=== PATIENT | female | born 1945 | race African-American/Black ===

== ENCOUNTER 2021-07-18 14:31 | Emergency (ER) | payer MEDICARE, OTHER ==
[2021-07-18 15:00] LABS: #Eosinphils 0.1 thou/uL (0.0-0.7); #Lymphocytes 1.8 thou/uL (1.20-3.40); #Monocytes 0.7 thou/uL (0.11-0.59); #Neutrophils 5.9 thou/uL (1.40-6.50); %Basophils 0.3 % (0.0-1.0); %Eosinophils 0.6 % (0.0-10.0); %Lymphocytes 21.6 % (21.0-51.0); %Monocytes 7.9 % (0.0-10.0); %Neutrophils 69.7 % (42.0-75.0); Hemoglobin 12.9 g/dL (12.0-16.0); Mean Corpuscular HGB CONC 33.4 g/dL (32.0-36.0); Mean Corpuscular Hemoglobin 30.4 pg (27.0-31.0); Mean Platelet Volume 7.4 fL (7.4-10.4); Platelet Count 159 thou/uL (130-400); RBC Distribution Width 14.2 % (11.5-14.5); Red Blood Cell (RBC) Count 4.26 mill/uL (4.20-5.40); White Blood Cell (WBC) Count 8.5 thou/uL (4.8-10.8)
[2021-07-18 15:21] LABS: ALT (SGPT) 9 U/L (8-55); AST (SGOT) 10 U/L (5-34); Alkaline Phosphatase 90 U/L (40-110); Anion Gap 15 mmol/L (10-20); BUN (Urea Nitrogen) 14 mg/dL (9.8-20.1); Bilirubin, Total 0.2 mg/dL (0.2-1.2); Calc. Creatinine Clearance 0 mL/min (70-130); Calcium 9.6 mg/dL (7.8-10.44); Carbon Dioxide 22 mmol/L (23-31); Chloride 109 mmol/L (98-107); Globulin 3.2 g/dL (2.4-3.5); Glucose 130 mg/dL (83-110); Potassium 3.9 mmol/L (3.5-5.1); Protein, Total 7.2 g/dL (5.8-8.1); Sodium 142 mmol/L (136-145)
[2021-07-18] MEDS ORDERED: cefTRIAXone\\ROCEPHIN 2 GM VIAL ONE (16:25)
[2021-07-18] MEDS ORDERED: Ondansetron ODT 4 MG TAB ONE (16:25)
[2021-07-18] MEDS ORDERED: Azithromycin 250 MG TAB ONE (16:25)
[2021-07-18] MEDS ORDERED: Dexamethasone 10 MG/ML VIAL ONE (17:39)
== END 2021-07-18 19:15 | disposition home or self-care (01) ==
LOC: ERS 14:31
DX: J18.9 Pneumonia, unspecified organism (principal); R00.0 Tachycardia, unspecified; I11.0 Hypertensive heart disease with heart failure; I50.9 Heart failure, unspecified; E78.5 Hyperlipidemia, unspecified; E11.9 Type 2 diabetes mellitus without complications; Z79.84 Long term (current) use of oral hypoglycemic drugs; Z79.899 Other long term (current) drug therapy
CPT/HCPCS: 36415; 71045; 80053; 83880; 84484; 85025; 93005; 96365; 96375; J0696; J1100; Q0162

== ENCOUNTER 2023-08-03 09:12 | Outpatient (CLI) | payer MEDICARE, OTHER | END 2023-08-03 09:13 | disposition home or self-care (01) | LOC: RAD-FRANK 09:12 | PROVIDERS: ATTEND Nurse Practitioner Family | DX: R06.02 Shortness of breath (principal) | CPT/HCPCS: 71046 ==

== ENCOUNTER 2023-08-11 09:58 | Inpatient (IN) | payer MEDICARE, OTHER ==
[2023-08-11] MEDS ORDERED: Morphine 4 MG/ML VIAL ONE (10:56)
[2023-08-11] MEDS ORDERED: Ondansetron PF 4 MG/2 ML Vial ONE ×3 (10:56→12:26)
[2023-08-11 11:21] LABS: #Monocytes 0.6 thou/uL (0.11-0.59); #Neutrophils 8.5 thou/uL (1.40-6.50); %Lymphocytes 10.7 % (21.0-51.0); %Monocytes 6.1 % (0.0-10.0); %Neutrophils 82.9 % (42.0-75.0); Hematocrit 45.1 % (36.0-47.0); Hemoglobin 14.7 g/dL (12.0-16.0); Mean Corpuscular HGB CONC 32.6 g/dL (32.0-36.0); Mean Corpuscular Hemoglobin 29.4 pg (27.0-31.0); Mean Corpuscular Volume 90.2 fl (78.0-98.0); Mean Platelet Volume 11.6 fL (7.4-10.4); Platelet Count 133 10x3/uL (130-400); RBC Distribution Width 14.5 % (11.5-14.5); White Blood Cell (WBC) Count 10.3 10x3/uL (4.8-10.8)
[2023-08-11 11:50] LABS: ALT (SGPT) 12 U/L (8-55); AST (SGOT) 9 U/L (5-34); Albumin 4.8 g/dL (3.4-4.8); Alkaline Phosphatase 96 U/L (40-110); Anion Gap 27 mmol/L (10-20); BUN (Urea Nitrogen) 34 mg/dL (9.8-20.1); Bilirubin, Total 0.2 mg/dL (0.2-1.2); Calc. Creatinine Clearance 0 mL/min (70-130); Calcium 9.8 mg/dL (7.8-10.44); Carbon Dioxide 14 mmol/L (23-31); Chloride 94 mmol/L (98-107); Estimated GFR 26; Globulin 2.2 g/dL (2.4-3.5); Lipase 25 U/L (8-78); Potassium 4.9 mmol/L (3.5-5.1); Sodium 130 mmol/L (136-145)
[2023-08-11 12:02] LABS: Glucose 650 mg/dL (83-110)
[2023-08-11 12:03] LABS: Bacteria/HPF None Seen HPF (None Seen); Bilirubin Negative (Negative); Blood, Urine Negative (Negative); CAUTI Indications for Culture Dysuria,urgency,freq; Clarity Clear (Clear); Glucose, Urine (Dipstick) Greater than 1000 mg/dL (Negative); Ketone, Urine 40 mg/dL (Negative); Leukocyte Negative Leu/uL (Negative); Nitrite Negative (Negative); Protein, Urine (Dipstick) 30 mg/dL (Neg-Trace); RBC/HPF 0-3 HPF (0-3); Specific Gravity, Urine 1.029 (1.002-1.036); Squamous Epithelial None Seen HPF (0-3); Urobilinogen Normal mg/dL (Less than 2); WBC/HPF 0-3 HPF (0-3)
[2023-08-11 12:05] LABS: Urine Culture Reflex No No
[2023-08-11 12:58] LABS: Troponin I Less than 0.010 ng/mL (< 0.028)
[2023-08-11 13:03] LABS: Base Excess -12.3 mEq/L (-2.0 to +3.0); Calcium, Ionized (venous) 1.02 mmol/L (1.16-1.32); Chloride (VBG) 98 mmol/L (98-106); Hematocrit-VBG 45 % (36.0-47.0); Hemoglobin (Hb) 15.4 g/dL (11.7-16.1); Potassium (VBG) 5.24 mmol/L (3.70-5.30); Sodium 132 mmol/L (133-146); pH (venous) 7.267 (7.32-7.43)
[2023-08-11 13:05] LABS: Actual Bicarbonate (HCO3v) 13.1 mEq/L (22-28)
[2023-08-11] MEDS ORDERED: INSULIN REGULAR IN 0.9 % NACL 100 UNITS/100 ML BAG ONE (13:31)
[2023-08-11] MEDS ORDERED: Ondansetron PF 4 MG/2 ML Vial IVP PRN (14:31)
[2023-08-11] MEDS ORDERED: Ondansetron ODT 4 MG TAB PO PRN (14:31)
[2023-08-11] MEDS ORDERED: Acetaminophen 325 MG TAB PO PRN (14:31)
[2023-08-11] MEDS ORDERED: Senokot S 8.6-50 MG TAB PO PRN (14:31)
[2023-08-11] MEDS ORDERED: Dextrose 50% Abboject 50 ML SYRINGE SLOW IVP PRN (14:31)
[2023-08-11] MEDS ORDERED: Acetaminophen 650 MG Suppository PR PRN (14:31)
[2023-08-11] MEDS ORDERED: Guaifenesin DM 100-10/5 ML UDCUP PO PRN (14:31)
[2023-08-11] MEDS ORDERED: NS 0.9% w/ 20 MEQ KCL 1,000 ML IV PRN ×2 (14:31)
[2023-08-11] MEDS ORDERED: Sodium Chloride 0.9% 1,000 ML IV PRN ×4 (14:31)
[2023-08-11] MEDS ORDERED: Electrolyte Replacement Protocol 1 EACH IVPB SCH (14:31)
[2023-08-11] MEDS ORDERED: HUMULIN R 100 UNITS in Sodium Chloride 0.9% 100 ML IVPB SCH (14:45)
[2023-08-11 17:03] LABS: Anion Gap 20 mmol/L (10-20); BUN (Urea Nitrogen) 30 mg/dL (9.8-20.1); Calc. Creatinine Clearance 57 mL/min (70-130); Calcium 9.4 mg/dL (7.8-10.44); Carbon Dioxide 17 mmol/L (23-31); Chloride 106 mmol/L (98-107); Estimated GFR 37; Glucose 230 mg/dL (83-110); Potassium 4.2 mmol/L (3.5-5.1); Sodium 139 mmol/L (136-145)
[2023-08-11] MEDS: D5 1/2 NS w/20 mEq KCL 1,000 ML IV PRN (18:08)
[2023-08-11 19:12] LABS: Anion Gap 23 mmol/L (10-20); BUN (Urea Nitrogen) 28 mg/dL (9.8-20.1); Calc. Creatinine Clearance 59 mL/min (70-130); Calcium 8.8 mg/dL (7.8-10.44); Carbon Dioxide 11 mmol/L (23-31); Chloride 107 mmol/L (98-107); Estimated GFR 39; Glucose 193 mg/dL (83-110); Magnesium 2.1 mg/dL (1.6-2.6); Potassium 5.5 mmol/L (3.5-5.1); Sodium 135 mmol/L (136-145)
[2023-08-11] MEDS: Dextrose 5 %-0.45 % NaCl 1,000 ML IV PRN ×2 (19:25→23:00)
[2023-08-11 23:54] LABS: Anion Gap 15 mmol/L (10-20); BUN (Urea Nitrogen) 19 mg/dL (9.8-20.1); Calc. Creatinine Clearance 68 mL/min (70-130); Calcium 8.3 mg/dL (7.8-10.44); Carbon Dioxide 17 mmol/L (23-31); Chloride 108 mmol/L (98-107); Estimated GFR 47; Glucose 214 mg/dL (83-110); Potassium 4.2 mmol/L (3.5-5.1); Sodium 136 mmol/L (136-145)
[2023-08-12] MEDS: D5 1/2 NS w/20 mEq KCL 1,000 ML IV PRN ×3 (02:17→09:01)
[2023-08-12 06:11] LABS: #Monocytes 1.2 thou/uL (0.11-0.59); #Neutrophils 8.1 thou/uL (1.40-6.50); %Basophils 0.1 % (0.0-1.0); %Eosinophils 0.4 % (0.0-10.0); %Lymphocytes 14.9 % (21.0-51.0); %Monocytes 10.6 % (0.0-10.0); %Neutrophils 73.8 % (42.0-75.0); Hematocrit 41.8 % (36.0-47.0); Hemoglobin 13.5 g/dL (12.0-16.0); Mean Corpuscular HGB CONC 32.3 g/dL (32.0-36.0); Mean Corpuscular Hemoglobin 29.6 pg (27.0-31.0); Mean Corpuscular Volume 91.7 fl (78.0-98.0); Mean Platelet Volume 10.3 fL (7.4-10.4); Platelet Count 96 10x3/uL (130-400); RBC Distribution Width 14.7 % (11.5-14.5); Red Blood Cell (RBC) Count 4.56 mill/uL (4.20-5.40)
[2023-08-12 06:32] LABS: Anion Gap 12 mmol/L (10-20); BUN (Urea Nitrogen) 14 mg/dL (9.8-20.1); Calc. Creatinine Clearance 76 mL/min (70-130); Calcium 8.9 mg/dL (7.8-10.44); Carbon Dioxide 21 mmol/L (23-31); Chloride 107 mmol/L (98-107); Estimated GFR 52; Glucose 155 mg/dL (83-110); Magnesium 1.8 mg/dL (1.6-2.6); Phosphorus 1.6 mg/dL (2.3-4.7); Potassium 3.5 mmol/L (3.5-5.1); Sodium 136 mmol/L (136-145)
[2023-08-12] MEDS: Pantoprazole 40 MG VIAL IVP SCH (09:00)
[2023-08-12] MEDS ORDERED: Glucagon 1 MG/ML KIT IM PRN (09:40)
[2023-08-12] MEDS ORDERED: Dextrose 5% in Water 1,000 ML IV PRN (09:40)
[2023-08-12] MEDS: D5 1/2 NS w/20 mEq KCL 1,000 ML IV SCH ×3 (09:41→21:31)
[2023-08-12 09:42] VITALS: BMI 37.5
[2023-08-12] MEDS ORDERED: Insulin Glargine 30 UNITS/0.3 ML VIAL SC SCH (09:45)
[2023-08-12] MEDS ORDERED: Magnesium 2 GM/50 ML(in water) 2 GM in Premix 1 BAG IVPB SCH (10:00)
[2023-08-12] MEDS ORDERED: Potassium Chloride 20 MEQ TAB PO SCH (10:00)
[2023-08-12 11:51] LABS: Chloride 100 mmol/L (98-107); Sodium 134 mmol/L (136-145)
[2023-08-12 11:54] LABS: Carbon Dioxide 12 mmol/L (23-31)
[2023-08-12] MEDS: PHOS-NAK 1 PKT PACK PO SCH ×3 (12:04→15:10)
[2023-08-12] MEDS: HumaLOG 300 UNITS/3 ML VIAL SC PRN ×3 (12:32→21:28)
[2023-08-12 13:05] LABS: Potassium 4.3 mmol/L (3.5-5.1)
[2023-08-12 13:07] LABS: Glucose 255 mg/dL (83-110)
[2023-08-12 13:08] LABS: Anion Gap 15 mmol/L (10-20)
[2023-08-12 13:10] LABS: Calc. Creatinine Clearance 80 mL/min (70-130); Estimated GFR 55
[2023-08-12 13:11] LABS: BUN (Urea Nitrogen) 11 mg/dL (9.8-20.1)
[2023-08-13 04:34] LABS: #Eosinphils 0.1 thou/uL (0.0-0.7); #Monocytes 0.7 thou/uL (0.11-0.59); #Neutrophils 3.2 thou/uL (1.40-6.50); %Basophils 0.2 % (0.0-1.0); %Eosinophils 0.9 % (0.0-10.0); %Lymphocytes 26.6 % (21.0-51.0); %Monocytes 12.9 % (0.0-10.0); %Neutrophils 59.2 % (42.0-75.0); Hematocrit 36.2 % (36.0-47.0); Hemoglobin 11.8 g/dL (12.0-16.0); Mean Corpuscular HGB CONC 32.6 g/dL (32.0-36.0); Mean Corpuscular Hemoglobin 29.4 pg (27.0-31.0); Mean Corpuscular Volume 90.3 fl (78.0-98.0); Mean Platelet Volume 10.7 fL (7.4-10.4); RBC Distribution Width 14.6 % (11.5-14.5); Red Blood Cell (RBC) Count 4.01 mill/uL (4.20-5.40); White Blood Cell (WBC) Count 5.4 10x3/uL (4.8-10.8)
[2023-08-13 05:07] LABS: Anion Gap 12 mmol/L (10-20); BUN (Urea Nitrogen) 7 mg/dL (9.8-20.1); Calc. Creatinine Clearance 95 mL/min (70-130); Calcium 8.5 mg/dL (7.8-10.44); Carbon Dioxide 19 mmol/L (23-31); Chloride 107 mmol/L (98-107); Estimated GFR 68; Glucose 305 mg/dL (83-110); Potassium 4.4 mmol/L (3.5-5.1); Sodium 134 mmol/L (136-145)
[2023-08-13 05:13] LABS: Platelet Count 86 10x3/uL (130-400)
[2023-08-13] MEDS: HumaLOG 300 UNITS/3 ML VIAL SC PRN ×4 (06:28→20:13)
[2023-08-13] MEDS: Pantoprazole 40 MG VIAL IVP SCH (08:27)
[2023-08-13] MEDS: D5 1/2 NS w/20 mEq KCL 1,000 ML IV SCH (08:35)
[2023-08-13] MEDS ORDERED: Insulin Glargine 30 UNITS/0.3 ML VIAL SC SCH ×2 (09:00→09:15)
[2023-08-13] MEDS: Insulin Glargine 30 UNITS/0.3 ML VIAL SC SCH (09:56)
[2023-08-13] MEDS: metFORMIN 500 MG TAB PO SCH (16:57)
[2023-08-14 04:13] LABS: #Eosinphils 0.1 thou/uL (0.0-0.7); #Monocytes 0.6 thou/uL (0.11-0.59); #Neutrophils 3.3 thou/uL (1.40-6.50); %Basophils 0.2 % (0.0-1.0); %Eosinophils 0.9 % (0.0-10.0); %Lymphocytes 31.4 % (21.0-51.0); %Monocytes 9.7 % (0.0-10.0); %Neutrophils 57.6 % (42.0-75.0); Hematocrit 38.8 % (36.0-47.0); Hemoglobin 12.5 g/dL (12.0-16.0); Mean Corpuscular HGB CONC 32.2 g/dL (32.0-36.0); Mean Corpuscular Hemoglobin 29.4 pg (27.0-31.0); Mean Corpuscular Volume 91.3 fl (78.0-98.0); Mean Platelet Volume 11.1 fL (7.4-10.4); RBC Distribution Width 14.9 % (11.5-14.5); Red Blood Cell (RBC) Count 4.25 mill/uL (4.20-5.40); White Blood Cell (WBC) Count 5.8 10x3/uL (4.8-10.8)
[2023-08-14 04:34] LABS: Platelet Count 89 10x3/uL (130-400)
[2023-08-14 04:35] LABS: Anion Gap 13 mmol/L (10-20); BUN (Urea Nitrogen) 11 mg/dL (9.8-20.1); Calc. Creatinine Clearance 95 mL/min (70-130); Calcium 8.8 mg/dL (7.8-10.44); Carbon Dioxide 20 mmol/L (23-31); Chloride 108 mmol/L (98-107); Estimated GFR 68; Glucose 254 mg/dL (83-110); Potassium 4.1 mmol/L (3.5-5.1); Sodium 137 mmol/L (136-145)
[2023-08-14] MEDS: HumaLOG 300 UNITS/3 ML VIAL SC PRN ×2 (06:20→13:10)
[2023-08-14] MEDS ORDERED: Levothyroxine Sodium 50 MCG TAB PO SCH (09:00)
[2023-08-14] MEDS ORDERED: Rosuvastatin 20 MG TAB PO SCH (09:00)
[2023-08-14] MEDS ORDERED: Lisinopril 20 MG TAB PO SCH (09:00)
[2023-08-14] MEDS ORDERED: Non-Formulary Item 1 EACH (Enalapril Maleate [Enalapril Maleate] 20 MG Tablet) PO SCH (09:00)
[2023-08-14] MEDS ORDERED: Amlodipine 5 MG TAB PO SCH (09:00)
[2023-08-14] MEDS ORDERED: Hydrochlorothiazide 25 MG TAB PO SCH (09:00)
[2023-08-14] MEDS ORDERED: Potassium Chloride 10 MEQ TAB PO SCH (09:00)
[2023-08-14] MEDS: Insulin Glargine 30 UNITS/0.3 ML VIAL SC SCH (09:17)
[2023-08-14] MEDS: metFORMIN 500 MG TAB PO SCH ×2 (09:18→17:02)
[2023-08-14 11:44] VITALS: TEMP 97.7
[2023-08-14 12:25] VITALS: BP 127/69
[2023-08-14] MEDS ORDERED: Insulin Glargine 30 UNITS/0.3 ML VIAL SC SCH (14:22)
== END 2023-08-14 18:16 | disposition home or self-care (01) | DRG 638 ==
LOC: ERS 09:58 → IMCU/EMU 14:35 → 2NO 08-13 13:46
PROVIDERS: ADMIT Emergency Medicine; ATTEND Hospitalist
DX: E11.10 Type 2 diabetes mellitus with ketoacidosis without coma (principal); I47.20 Ventricular tachycardia, unspecified; N17.9 Acute kidney failure, unspecified; E78.5 Hyperlipidemia, unspecified; I50.9 Heart failure, unspecified; I11.0 Hypertensive heart disease with heart failure; Z98.51 Tubal ligation status; Z79.899 Other long term (current) drug therapy; Z79.84 Long term (current) use of oral hypoglycemic drugs; Z90.49 Acquired absence of other specified parts of digestive tract; Z98.890 Other specified postprocedural states
CPT/HCPCS: 36415; 36416; 71045; 74176; 80048; 80053; 81001; 82010; 82805; 83605; 83690; 83735; 84100; 84484; 85025; 87040; 93005; 93306; 96361; 96365; 96366; 96367; 96375; 96376; C9113; J1650; J1815; J2270; J2405; J3475; J3480; J3490; J7042

== ENCOUNTER 2024-10-07 09:20 | Emergency (ER) | payer MEDICARE | END 2024-10-07 11:13 | disposition home or self-care (01) | LOC: ERS 09:20 | DX: B02.9 Zoster without complications (principal); I11.0 Hypertensive heart disease with heart failure; I50.9 Heart failure, unspecified; E11.9 Type 2 diabetes mellitus without complications; E78.5 Hyperlipidemia, unspecified; Z79.84 Long term (current) use of oral hypoglycemic drugs; Z79.4 Long term (current) use of insulin | CPT/HCPCS: 99282 ==